=== PATIENT | male | born 1960 | race Caucasian/White ===

== ENCOUNTER 2017-08-14 01:16 | Emergency (ER) | payer OTHER ==
[2017-08-14] MEDS ORDERED: ASPIRIN 81 MG CHEWABLE TABLET PO ONE (01:18)
[2017-08-14] MEDS ORDERED: MORPHINE SULFATE 5 MG/ML PFS IVP ONE (01:24)
[2017-08-14] MEDS ORDERED: HEPARIN SODIUM 1000 UNIT/1 ML 10ML VIAL IVP ONE (01:25)
--- NOTE | 2017-08-14 01:25 | Emergency Department Record ---
History of Present Illness - General Chief Complaint: Chest Pain Stated Complaint: CHEST PAIN Time Seen by Provider: 08/14/17 01:18 Source: Patient, Family Mode of Arrival: Ambulatory Limitations: No limitations - History of Present Illness Initial Comments: 57 yo male presents with chest pain that started about 1.5 hours ago. The pain started in the left shoulder then radiated to the left chest. The pain came on at rest. No history of CAD. No history of PE. He states the pain is a little more noticeable with breathing. He is from [place]. He travelled here June 21 by over the course of 10 days with many frequent stops.. He is in [place] season. He is a smoker. His dad had an HI at 50. His last stress test was many years ago prior to a lap band. MD Complaint: Chest pain -: Hour(s) (1.5) Onset: During rest Pain Location: Left chest Pain Radiation: LUE (shoulder) Consistency: Constant Improves With: Nothing Worsens With: Inspiration Context: Recent travel (June) Anginal Symptoms: Dyspnea - Related Data Home Medications Medication Instructions Recorded Confirmed Last Taken Acetazolamide 250 mg PO DAILY 08/14/17 08/14/17 Unknown Aliskiren Hemifumarate [Tekturna] 300 mg PO DAILY 08/14/17 08/14/17 Unknown Aspirin 81 mg PO DAILY 08/14/17 08/14/17 Unknown Cyclobenzaprine HCl [Flexeril] 10 mg PO QHS 08/14/17 08/14/17 Unknown Gabapentin [Neurontin] 300 mg PO TID 08/14/17 08/14/17 Unknown Hydrocodone/Acetaminophen 1 each PO TID 08/14/17 08/14/17 Unknown [Hydrocodon-Acetaminophen 5-325] Nisoldipine [Sular] 25 mg PO DAILY 08/14/17 08/14/17 Unknown Omeprazole [Prilosec] 20 mg PO DAILY 08/14/17 08/14/17 Unknown Pregabalin [Lyrica] 50 mg PO TID 08/14/17 08/14/17 Unknown Allergies Allergy/AdvReac Type Severity Reaction Status Date / Time Penicillins Allergy VOMITING Verified 08/14/17 01:21 Review of Systems Constitutional: Denies: Chills, Fever, Malaise, Weakness Eyes: Denies: Eye discharge, Eye pain, Photophobia, Vision change ENT: Denies: Congestion, Epistaxis, Throat pain Respiratory: Reports: Cough, Dyspnea. Denies: Hemoptysis, Stridor, Wheezes Cardiovascular: Reports: Chest pain. Denies: Arrhythmia, Palpitations, Syncope Endocrine: Denies: Fatigue, Polydipsia, Polyuria Gastrointestinal: Denies: Abdominal pain, Diarrhea, Nausea, Vomiting Genitourinary: Denies: Dysuria, Frequency, Hematuria Musculoskeletal: Denies: Arthralgia, Back pain, Joint swelling, Myalgia, Neck pain, Other Skin: Denies: Bruising, Change in color, Rash Neurological: Denies: Headache, Numbness, Tremors, Vertigo, Weakness Psychiatric: Denies: Anxiety Hematological/Lymphatic: Denies: Blood Clots, Easy bleeding, Easy bruising, Swollen glands Physical Exam - General General Appearance: Alert, Oriented x3, Cooperative, No acute distress Limitations: No limitations - Head Head exam: Atraumatic, Normocephalic, Normal inspection - Eye Eye exam: Normal appearance, PERRL. negative: Conjunctival injection, Periorbital swelling, Scleral icterus - ENT ENT exam: Normal exam, Mucous membranes moist Ear exam: Normal external inspection Nasal Exam: Normal inspection Mouth exam: Normal external inspection Teeth exam: Normal inspection - Neck Neck exam: Normal inspection. negative: Lymphadenopathy - Respiratory Respiratory exam: Normal lung sounds bilaterally. negative: Respiratory distress, Rhonchi, Stridor, Wheezes - Cardiovascular Cardiovascular Exam: Regular rate, Normal rhythm, Normal heart sounds Peripheral Pulses: 2+: Radial (R), Radial (L) - GI/Abdominal GI/Abdominal exam: Soft. negative: Tenderness - Rectal Rectal exam: Deferred - exam: Deferred - Extremities Extremities exam: Normal inspection, Full ROM, Normal capillary refill. negative: Tenderness - Back Back exam: Reports: Normal inspection, Full ROM. Denies: Muscle spasm, Rash noted, Tenderness - Neurological Neurological exam: Alert, Normal gait, Oriented X3 - Psychiatric Psychiatric exam: Normal affect, Normal mood - Skin Skin exam: Dry, Intact, Normal color, Warm Course - Reevaluation(s) Reevaluation #1: EKG 01:17 NSR rate is 96, intervals Qtc is 468, [place] left, ST no depression or acute elevation, there are Q waves in the anterior leads. No old EKG on file. The patient states his pain maxed at a 5/10 It is improving prior to medications and is now mild at a 2/10 08/14/17 01:25 08/14/17 01:38 No acute changes on the CBC. 08/14/17 01:45 The patient has had one nitro and states the pain is nearly completely gone. He states at worst it is 1/10. 08/14/17 01:52 D-Dimer is negative at .33 The patient is very comfortable and declined additionally pain medication 08/14/17 02:02 There is no acute changes on the BMP 08/14/17 02:10 The troponin is negative at less than 0.01 The prelim CXR per my read is no acute process. 08/14/17 02:21 I discussed transfer with the patient as a recommendation given his chest pain, family history and non specific changes on the EKG without an old EKG for comparison. I discussed all of these factors with him. He still declines transfer for cardiology consultation and further work up. I discussed staying for repeat cardiac enzymes but still signing out AMA. He is agreeable to this plan. Given he plans on signing out AMA I also recommend CTA to rule out other pathologies. 08/14/17 02:25 08/14/17 03:[address] scan was reviewed. No central PE. Timing of contrast limits segmental branches. Left ventricular filling defect noted raising the suspicion for a intraventricular thrombus consider ECHO, 4.6mm pulmonary nodule. The patient was made aware of the findings and the strong recommendation for transfer at this time. In light of the new findings the patient is in agreement for transfer. 08/14/17 03:47 08/14/17 04:[address] Ross at [facility] He accepts the patient for transfer to further work up the chest pain, possible ventricular thrombus 08/14/17 04:01 08/14/17 04:07 The patient is now stating he will go but he is not willing to go by EMS. I again explained the risks of leaving AMA, including , stroke, heart attack. He understands my concerns and will sign out AMA and transport himself by car. Medical Decision Making - Lab Data Result diagrams: 08/14/17 01:22 08/14/17 01:22 Disposition Disposition: Transfer Clinical Impression: Chest pain Qualifiers: Chest pain type: unspecified Qualified Code(s): R07.9 - Chest pain, unspecified Disposition: Against Medical Advice Transfer To: Critical access hospital Reason For Transfer: Chest pain, Cardiology testing. Accepting Physician: Cody Time Discussed w/Accepting Physician: 03:54 Condition: (2) Stable Instructions: Against Medical Advice (ED) Additional Instructions: You are signing out AMA Go directly to the [facility] emergency department Forms: Patient Portal Access Time of Disposition: 03:54 Quality - Quality Measures Quality Measures: N/A - Blood Pressure Screening Does Patient Have Any of the Following: No Blood Pressure Classification: Pre-Hypertensive BP Reading Systolic Measurement: 156 Diastolic Measurement: 82 Screening for High Blood Pressure: < Pre-Hypertensive BP, F/U Documented > [ [id number]] Pre-Hypertensive Follow-up Interventions: Referral to alternative/primary care provider.
[2017-08-14 01:28] LABS: BASO % 0.4 % (0-6); EOS % 2.4 % (0-6); GRAN % 63.1 % (47-80); HEMATOCRIT 47.9 % (42.0-52.0); HEMOGLOBIN 16.6 gm/dl (14.0-18.0); LYMPH % 24.6 % (16-45); MEAN CELL VOLUME 95.8 fl (81-97); MEAN CORPUSCULAR HEMOGLOBIN 33.2 pg (27-33); MEAN CORPUSCULAR HGB CONC 34.7 g/dl (32-36); MEAN PLATELET VOLUME 10.3 fl (7.4-10.4); MONO % 9.5 % (0-9); PLATELET COUNT 198 K/uL (130-400); RED CELL DISTRIBUTION WIDTH 13.8 % (11.5-14.5); WHITE BLOOD COUNT W/O DIFF 8.9 K/uL (4.2-12.2)
[2017-08-14] MEDS ORDERED: HEPARIN SODIUM/D5W 25,000 UNITS/500 ML BAG IV SCH (01:30)
[2017-08-14] MEDS: NITROGLYCERIN 0.4MG SL TABLET #25 BTL SL PRN ×2 (01:35→01:42)
[2017-08-14 01:42] LABS: INR 0.92; PARTIAL THROMBOPLASTIN TIME 28.6 SECONDS (24.5-39.1); PROTHROMBIN TIME (PATIENT) 9.9 SECONDS (9.5-12.1)
[2017-08-14 01:59] LABS: BLOOD UREA NITROGEN 18 mg/dL (6-20); CREATININE 0.9 mg/dL (0.7-1.2); EST GLOMERULAR FILTRATION RATE > 60 mL/min; GLUCOSE,RANDOM 122 mg/dL (74-109)
[2017-08-14 02:06] LABS: CKMB 3.6 ng/mL (<6.73)
[2017-08-14 02:11] LABS: NTpro B-NATRIURETIC PEPTIDE 23.62 pg/mL (<125)
--- NOTE | 2017-08-14 08:50 | CT ANGIOGRAM REPORT ---
EXAM: CTA OF THE CHEST HISTORY: CHEST PAIN. TECHNIQUE: CTA of the chest was performed following IV administration of 90 ml of Omnipaque 350 contrast. Axial images were obtained with coronal and sagittal MIP reconstructions. Comparison: None. FINDINGS: The visualized thyroid gland enhances normally. There is a significantly suboptimal contrast bolus. Assessment of the distal arterial tree is nondiagnostic. No large or central pulmonary embolus. Negative for thoracic aortic aneurysm or dissection. Vague area of diminished attenuation in the region of the left ventricle may be artifactual. Left ventricular mass or thrombus felt less likely, but not excluded entirely. Post surgical changes in the epigastric region with a small hiatal hernia. Fat containing left adrenal adenoma. This measures 1.9 x x 1.4 cm. Subcentimeter renal cysts bilaterally. The osseous structures of the thorax are grossly intact. There is a pericardial cyst associated with the right heart border, measuring 5.3 x 1.6 cm. There are mild emphysematous changes, most pronounced in the upper lobes and apices. 4 mm subpleural nodule in the anterior left lung base. The lungs are otherwise clear. IMPRESSION: 1. THIS STUDY IS NEARLY NONDIAGNOSTIC FOR THE ASSESSMENT OF PULMONARY EMBOLUS. NO LARGE OR CENTRAL PULMONARY EMBOLUS. 2. MILD EMPHYSEMATOUS CHANGES. 4 MM NODULE AT THE LEFT LUNG BASE COULD BE FOLLOWED WITH SIX MONTH FOLLOW-UP CT CHEST. 3. VAGUE LOW DENSITY FOCUS WITHIN THE REGION OF THE LEFT VENTRICLE. THE POSSIBILITY OF A LEFT VENTRICULAR MASS OR THROMBUS CANNOT BE EXCLUDED. COULD CONSIDER FOLLOW-UP WITH ECHOCARDIOGRAM. 4. LEFT ADRENAL ADENOMA. POST SURGICAL CHANGES OF THE UPPER ABDOMEN WITH SMALL HIATAL HERNIA. LOBULATED PERICARDIAL CYST. JOB NUMBER: [id number] [facility]
--- NOTE | 2017-08-15 07:35 | RADIOLOGY REPORT ---
EXAM: PORTABLE SEMI-ERECT CHEST HISTORY: CHEST PAIN. TECHNIQUE: A portable semi-erect chest was obtained. Comparison: None. FINDINGS: The heart size is normal. Osteopenia. The lungs are clear. No pneumothorax. IMPRESSION: NO ACUTE CARDIOPULMONARY PROCESS. JOB NUMBER: [id number] MTDD
== END 2017-08-14 04:23 | disposition left against medical advice (07) ==
LOC: ER 01:16
DX: R07.9 Chest pain, unspecified (principal); R06.00 Dyspnea, unspecified; M25.512 Pain in left shoulder; F17.210 Nicotine dependence, cigarettes, uncomplicated
CPT/HCPCS: 99285 ×2; 96374; 96375; 85025; 85730; 85610; 82553; 80048; 84484; 85379; 83880; 71010; 71275; 93005; 93010; Q9967